=== PATIENT | male | born 1980 | race American Indian/Alaskan Native ===

== ENCOUNTER 2021-02-17 19:41 | Inpatient (IN) | payer SELFPAY ==
[2021-02-17] MEDS ORDERED: CLOPIDOGREL 300 MG TAB PO ONE (19:43)
[2021-02-17] MEDS ORDERED: ONDANSETRON 4 MG/2 ML INJ IV ONE (19:43)
[2021-02-17] MEDS ORDERED: HEPARIN 10,000 UNITS/10 ML VIAL IV PRN (19:43)
[2021-02-17] MEDS ORDERED: HEPARIN 1,000 UNIT/1 ML VIAL IV ONE (19:43)
[2021-02-17] MEDS ORDERED: MORPHINE 4 MG/1 ML INJ IV ONE (19:46)
[2021-02-17] MEDS ORDERED: SODIUM CHLORIDE 0.9% 500 ML 500 ML IV ONE (19:46)
--- NOTE | 2021-02-17 19:47 | Emergency Department Report ---
ED Chest Pain HPI - General Chief Complaint: Chest Pain Stated Complaint: CODE STEMI PUI?: No Time Seen by Provider: 02/17/21 19:43 Source: patient, EMS (Verbal report received from emergency medical services. EMS documentation not available at time of chart dictation ), RN notes reviewed Mode of arrival: Stretcher Limitations: Physical Limitation - History of Present Illness Initial Comments: The patient was evaluated in the emergency department for symptoms described in the history of present illness. He/she was evaluated in the context of the global COVID-19 pandemic, which necessitated consideration that the patient might be at risk for infection with the virus that causes COVID-19. Institutional protocols and algorithms that pertain to the evaluation of patients at risk for COVID-19 are in a state of rapid change based on information released by regulatory bodies including the CDC and federal and state organizations. These policies and algorithms were followed during the patient's care in the emergency department. Please note that these policies, procedures and recommendations changed on a rapid basis. The patient is a 40-year-old gentleman, who has a history of diabetes, who is brought to the hospital by emergency medical services as a code STEMI. Patient complains of anterior and left-sided chest pain. Prehospital EKG consistent with inferior wall STEMI. EMS gave Zofran, Benadryl, and aspirin in the field. They reported a normal blood pressure. EKG evaluated by myself, and subsequently transmitted to our power shovel operator helper, Dr. Slater, at 19: 32 PM. We agreed to activate the catheterization lab emergently. \ Code STEMI called overhead at 19: 33 Cardiology request Plavix load, 600 mg, heparin. The patient denies travel, surgery, immobilization, DVT and pulmonary embolism risk factors, and hematemesis and bright red blood per rectum. MD Complaint: chest pain -: Sudden, hour(s) Pain Location: substernal, left chest Consistency: constant Improves With: nothing Worsens With: nothing re: nausea Treatments Prior to Arrival: aspirin, other Aspirin use within the Past 7 Days: (0) No - Related Data Allergies Allergy/AdvReac Type Severity Reaction Status Date / Time No Known Allergies Allergy Verified 02/17/21 19:46 Heart Score - HEART Score History: Highly suspicious EKG: Significant ST-depression Age: < 45 Risk factors: 1-2 risk factors Troponin: 1-3x normal limit HEART Score: 6 - EKG Read Time Time EKG Completed: 19:46 EKG Read Time: 19:46 - Critical Actions Critical Actions: 4-6 pts:12-16.6% risk of adverse cardiac event. Should be admitted ED Review of Systems ROS: Stated complaint: CODE STEMI Other details as noted in HPI Comment: Unobtainable due to pts medical conditions Cardiovascular: chest pain Gastrointestinal: denies: hematemesis, melena, hematochezia ED Physical Exam - General Limitations: Physical Limitation General appearance: alert, anxious, in distress - Head Head exam: Present: atraumatic, normocephalic - Eye Eye exam: Present: normal appearance, EOMI. Absent: nystagmus - ENT ENT exam: Present: normal exam, normal orophraynx, mucous membranes moist, normal external ear exam - Neck Neck exam: Present: normal inspection, full ROM. Absent: tenderness, meningismus - Respiratory Respiratory exam: Present: normal lung sounds bilaterally. Absent: respiratory distress, wheezes, rales, rhonchi, stridor, decreased breath sounds - Cardiovascular Cardiovascular Exam: Present: regular rate, normal rhythm, normal heart sounds. Absent: bradycardia, tachycardia, irregular rhythm, systolic murmur, diastolic murmur, rubs, gallop - GI/Abdominal GI/Abdominal exam: Present: soft. Absent: distended, tenderness, guarding, rebound, rigid, pulsatile mass - Rectal Rectal exam: Present: deferred - Extremities Exam Extremities exam: Present: normal inspection, full ROM, other (2+ pulses noted in the bilateral upper and lower extremities. There is no palpable cord. negative Homans sign. Muscular compartments are soft. The pelvis is stable.). Absent: pedal edema, calf tenderness - Back Exam Back exam: Present: normal inspection. Absent: tenderness, CVA tenderness (R), CVA tenderness (L), paraspinal tenderness, vertebral tenderness - Neurological Exam Neurological exam: Present: alert, other (No facial droop. Tongue midline. Extraocular movements intact bilaterally. Facial sensation intact to light touch in V1, V2, V3 distribution bilaterally. 5 and a 5 strength in 4 extremities. Sensation intact to light touch in 4 extremities.) - Psychiatric Psychiatric exam: Present: anxious - Skin Skin exam: Present: warm, dry, intact, normal color. Absent: rash ED Course Vital Signs 02/17/21 02/17/21 02/17/21 19:41 19:45 21:45 Temperature 98 F Pulse Rate 98 H 84 Respiratory 16 12 Rate Blood Pressure 112/77 Blood Pressure 129/99 [Left] O2 Sat by Pulse 98 98 100 Oximetry 02/17/21 02/17/21 02/17/21 22:12 22:17 22:20 Temperature 98.1 F Pulse Rate 84 70 Respiratory 13 15 Rate Blood Pressure 112/71 Blood Pressure [Left] O2 Sat by Pulse Oximetry 02/17/21 02/17/21 02/17/21 22:30 22:40 22:50 Temperature Pulse Rate 72 69 75 Respiratory 18 8 L 8 L Rate Blood Pressure 112/71 112/62 Blood Pressure [Left] O2 Sat by Pulse 97 98 98 Oximetry JIM score - Jim Score Age > 65: (0) No Aspirin use within the Past 7 Days: (0) No 3 or more CAD Risk Factors: (0) No 2 or more Angina events in past 24 hrs: (0) No Known CAD with more than 50% Stenosis: (1) Yes Elevated Cardiac Markers: (1) Yes ST Deviation Greater than 0.5mm: (1) Yes JIM Score: 3 ED Medical Decision Making - Lab Data Result diagrams: 02/17/21 20:37 02/17/21 21:02 Vital Signs 02/17/21 02/17/21 02/17/21 19:41 19:45 21:45 Temperature 98 F Pulse Rate 98 H 84 Respiratory 16 12 Rate Blood Pressure 112/77 Blood Pressure 129/99 [Left] O2 Sat by Pulse 98 98 100 Oximetry 02/17/21 02/17/21 02/17/21 22:12 22:17 22:20 Temperature 98.1 F Pulse Rate 84 70 Respiratory 13 15 Rate Blood Pressure 112/71 Blood Pressure [Left] O2 Sat by Pulse Oximetry 02/17/21 02/17/21 02/17/21 22:30 22:40 22:50 Temperature Pulse Rate 72 69 75 Respiratory 18 8 L 8 L Rate Blood Pressure 112/71 112/62 Blood Pressure [Left] O2 Sat by Pulse 97 98 98 Oximetry Lab Results 02/17/21 02/17/21 02/17/21 Range/Units 20:37 20:37 21:02 WBC 8.2 (4.5-11.0) K/mm3 RBC 4.57 (3.65-5.03) M/mm3 Hgb 12.5 (11.8-15.2) gm/dl Hct 37.5 (35.5-45.6) % MCV 82 L (84-94) fl MCH 27 L (28-32) pg MCHC 33 (32-34) % RDW 12.6 L (13.2-15.2) % Plt Count 240 (140-440) K/mm3 Lymph % (Auto) 13.0 L (13.4-35.0) % Foster % (Auto) 3.2 (0.0-7.3) % Eos % (Auto) 0.0 (0.0-4.3) % Baso % (Auto) 0.4 (0.0-1.8) % Lymph # (Auto) 1.1 L (1.2-5.4) K/mm3 Foster # (Auto) 0.3 (0.0-0.8) K/mm3 Eos # (Auto) 0.0 (0.0-0.4) K/mm3 Baso # (Auto) 0.0 (0.0-0.1) K/mm3 Seg Neutrophils % 83.4 H (40.0-70.0) % Seg Neutrophils # 6.9 (1.8-7.7) K/mm3 PT TNR INR TNR APTT TNR Sodium 135 L (137-145) mmol/L Potassium 4.3 (3.6-5.0) mmol/L Chloride 97.4 L (98-107) mmol/L Carbon Dioxide 27 (22-30) mmol/L Anion Gap 15 mmol/L BUN 9 (9-20) mg/dL Creatinine 0.7 L (0.8-1.3) mg/dL Estimated GFR > 60 ml/min BUN/Creatinine Ratio 13 % Glucose 346 H (75-100) mg/dL Calcium 9.1 (8.4-10.2) mg/dL Total Creatine Kinase 502 H (55-170) units/L CK-MB (CK-2) 41.8 H (0.0-4.0) ng/mL CK-MB (CK-2) Rel Index 8.3 H (0-4) Troponin T 0.890 H* (0.00-0.029) ng/mL Triglycerides 44 (2-149) mg/dL Cholesterol 186 (50-199) mg/dL LDL Cholesterol Direct 143 H (50-130) mg/dL HDL Cholesterol 47 (40-59) mg/dL Cholesterol/HDL Ratio 3.95 % Blood Type Antibody Screen 02/17/21 02/17/21 Range/Units 21:02 21:02 WBC (4.5-11.0) K/mm3 RBC (3.65-5.03) M/mm3 Hgb (11.8-15.2) gm/dl Hct (35.5-45.6) % MCV (84-94) fl MCH (28-32) pg MCHC (32-34) % RDW (13.2-15.2) % Plt Count (140-440) K/mm3 Lymph % (Auto) (13.4-35.0) % Foster % (Auto) (0.0-7.3) % Eos % (Auto) (0.0-4.3) % Baso % (Auto) (0.0-1.8) % Lymph # (Auto) (1.2-5.4) K/mm3 Foster # (Auto) (0.0-0.8) K/mm3 Eos # (Auto) (0.0-0.4) K/mm3 Baso # (Auto) (0.0-0.1) K/mm3 Seg Neutrophils % (40.0-70.0) % Seg Neutrophils # (1.8-7.7) K/mm3 PT 15.5 H INR 1.18 H APTT Sodium (137-145) mmol/L Potassium (3.6-5.0) mmol/L Chloride (98-107) mmol/L Carbon Dioxide (22-30) mmol/L Anion Gap mmol/L BUN (9-20) mg/dL Creatinine (0.8-1.3) mg/dL Estimated GFR ml/min BUN/Creatinine Ratio % Glucose (75-100) mg/dL Calcium (8.4-10.2) mg/dL Total Creatine Kinase (55-170) units/L CK-MB (CK-2) (0.0-4.0) ng/mL CK-MB (CK-2) Rel Index (0-4) Troponin T (0.00-0.029) ng/mL Triglycerides (2-149) mg/dL Cholesterol (50-199) mg/dL LDL Cholesterol Direct (50-130) mg/dL HDL Cholesterol (40-59) mg/dL Cholesterol/HDL Ratio % Blood Type O POSITIVE Antibody Screen Negative - EKG Data -: EKG Interpreted by Tx EKG shows normal: sinus rhythm - EKG Data When compared to previous EKG there are: previous EKG unavailable 02/17/21 20:03 ER EKG interpreted at 19: 46 Sinus rhythm, tachycardia, rate 101 bpm. Normal axis, QTC 444 ms. Inferior wall STEMI, high left ventricular voltage. Abnormal EKG. Consistent with prior prehospital EKG, also consistent with STEMI. - Radiology Data Radiology results: pending, report reviewed, image reviewed [facility] [address] [place] [address] XRay Report Signed Patient: ANA BARRIGA MR#: [id number] : 1980 Acct:[id number] Age/Sex: 40 / M ADM Date: 02/17/21 Loc: CC1 A257-[address]: NIMA PINEDA MD Ordering Physician: LAYLA SUNG MD Date of Service: 02/17/21 Procedure(s): XR chest 1V ap Accession Number(s): [id number] cc: LAYLA SUNG MD Fluoro Time In Minutes: CHEST 1 VIEW 02/17/2021 9:48 PM INDICATION / CLINICAL INFORMATION: chest pain. COMPARISON: None available. FINDINGS: SUPPORT DEVICES: None. HEART / MEDIASTINUM: No significant abnormality. LUNGS / PLEURA: No significant pulmonary or pleural abnormality. No pneumothorax. ADDITIONAL FINDINGS: No significant additional findings. IMPRESSION: 1. No acute findings. Signer Name: Jamie Velasco MD Signed: 02/17/2021 10:54 PM Workstation Name: [id number] Transcribed By: DT Dictated By: Rafael Velasco MD Electronically Authenticated By: Rafael Velasco MD Signed Date/Time: 02/17/212253 DD/ 52 - Medical Decision Making Differential diagnosis, including the not limited to: Acute coronary syndrome/STEMI Assessment and plan: 40-year-old gentleman with prehospital inferior wall STEMI. Prehospital EKG consistent with STEMI. Code STEMI activated overhead prior to patient's arrival to this emergency room. Have ordered laboratory studies and x-ray of the chest, however, secondary to the time sensitive nature of code STEMI, will defer to inpatient team to follow this up. Cardiology on board, patient medicated with aspirin in the field, and also to receive Plavix in the emergency room, and heparin. Critical care physician, Dr. Mir, to coordinate care in the intensive care unit. Patient will be admitted to the medical service under the care of Dr. Peter Pineda after treatment in the cardiac catheterization lab. We did discuss this with the patient. He articulated understanding. Critical Care Time: Yes Critical care time in (mins) excluding proc time.: 35 Critical care attestation.: If time is entered above; I have spent that time in minutes in the direct care of this critically ill patient, excluding procedure time. ED Disposition Clinical Impression: STEMI (ST elevation myocardial infarction) Disposition: OP ADMIT IP TO THIS HOSP Is pt being admited?: Yes Does the pt Need Aspirin: No Condition: Critical
[2021-02-17] MEDS ORDERED: HEPARIN/NS 5000 UNIT/500ML 1,000 ML IR ONE (19:48)
[2021-02-17] MEDS ORDERED: VERAPAMIL 5 MG/2 ML INJ ONE (19:49)
[2021-02-17] MEDS ORDERED: LIDOCAINE (2%) 20 MG/1 ML VIAL 20 ML MDV INFILTRATI ONE ×2 (19:49→20:25)
[2021-02-17] MEDS ORDERED: NITROGLYCERIN SYRINGE 3 ML ONE (19:49)
[2021-02-17] MEDS ORDERED: HEPARIN 10,000 UNITS/10 ML VIAL ONE ×2 (19:49→22:19)
[2021-02-17] MEDS ORDERED: MIDAZOLAM 2 MG/2 ML INJ ONE (19:49)
[2021-02-17] MEDS ORDERED: fentaNYL 100 MCG/2 ML INJ ONE (19:49)
[2021-02-17] MEDS ORDERED: ATROPINE 0.1% (1 MG/10 ML) CARDIAC SYRINGE ONE (19:50)
[2021-02-17] MEDS ORDERED: LIDOCAINE PF 100 MG/5 ML (CARDIAC SYRINGE) IV ONE (19:50)
[2021-02-17] MEDS ORDERED: SODIUM CHLORIDE 0.9% 1000 ML 1,000 ML ONE (19:50)
[2021-02-17] MEDS ORDERED: EPINEPHrine 1 MG/10 ML SYRINGE ONE (19:50)
[2021-02-17] MEDS ORDERED: PHENYLEPHRINE/NS 1,000 MCG/10 ML SYRINGE (OR USE) IV ONE (19:51)
[2021-02-17] MEDS ORDERED: HEPARIN/ 0.45% NACL DRIP 25,000 UNIT/500 ML BAG IV SCH (20:00)
[2021-02-17] MEDS ORDERED: TIROFIBAN/NS 12,500 MCG/250 ML BAG IV ONE (20:20)
[2021-02-17] MEDS ORDERED: DOPamine/D5W 800 MG/250 ML 800 MG/250 ML BAG IV ONE (20:23)
[2021-02-17] MEDS ORDERED: HEPARIN/NS 5000 UNIT/500ML 500 ML IR ONE (20:28)
[2021-02-17] MEDS ORDERED: METOCLOPRAMIDE 10 MG/2 ML INJ IV PRN (20:34)
[2021-02-17] MEDS ORDERED: ONDANSETRON 4 MG/2 ML INJ IV PRN ×5 (20:34→21:33)
[2021-02-17] MEDS ORDERED: HYDROmorphone 1 MG/1 ML INJ IV PRN ×2 (20:34→21:42)
[2021-02-17] MEDS ORDERED: MORPHINE 2 MG/1 ML INJ IV PRN (20:34)
[2021-02-17] MEDS ORDERED: ACETAMINOPHEN 325 MG TAB PO PRN ×3 (20:41→21:33)
[2021-02-17] MEDS ORDERED: SODIUM CHLORIDE 0.9% 1000 ML 1,000 ML IV SCH (20:45)
[2021-02-17 20:46] LABS: Basophils % (Auto) 0.4 % (0.0-1.8); Hematocrit 37.5 % (35.5-45.6); Hemoglobin 12.5 gm/dl (11.8-15.2); Lymphocytes # (Auto) 1.1 K/mm3 (1.2-5.4); Mean Corpuscular HGB Conc 33 % (32-34); Mean Corpuscular Volume 82 fl (84-94); Monocytes # (Auto) 0.3 K/mm3 (0.0-0.8); Monocytes % (Auto) 3.2 % (0.0-7.3); Platelet Count 240 K/mm3 (140-440); Red Blood Count 4.57 M/mm3 (3.65-5.03); Red Cell Distribution Width 12.6 % (13.2-15.2)
[2021-02-17] MEDS ORDERED: HEPARIN 10,000 UNITS/10 ML VIAL IV ONE (21:00)
[2021-02-17] MEDS ORDERED: NALOXONE 0.4 MG/1 ML INJ IV PRN (21:19)
[2021-02-17] MEDS ORDERED: IBUPROFEN 600 MG TAB PO PRN ×2 (21:19→21:42)
[2021-02-17 21:23] LABS: INR 1.18 (0.87-1.13)
[2021-02-17] MEDS ORDERED: DEXTROSE 50% IN WATER (25GM) 50 ML SYRINGE IV ONE (21:28)
[2021-02-17] MEDS ORDERED: DOPamine/D5W 800 MG/250 ML DRIP IV ONE (21:30)
[2021-02-17] MEDS ORDERED: oxyCODONE /ACETAMINOPHEN 5-325MG TAB PO PRN (21:36)
[2021-02-17 21:38] LABS: INR TNR (0.87-1.13); Partial Thromboplastin Time TNR Sec. (24.2-36.6)
[2021-02-17 21:42] LABS: Creatine Kinase MB 41.8 ng/mL (0.0-4.0)
[2021-02-17 21:43] LABS: Blood Urea Nitrogen 9 mg/dL (9-20); Calcium 9.1 mg/dL (8.4-10.2); Hemolysis Index 6
[2021-02-17 21:48] LABS: BUN/Creatinine Ratio 13
[2021-02-17 21:59] LABS: Chol/HDL Ratio 3.95 %; HDL Cholesterol 47 mg/dL (40-59); LDL Cholesterol,Direct 143 mg/dL (50-130)
[2021-02-17] MEDS ORDERED: FAMOTIDINE 20 MG/2 ML INJ IV SCH (22:00)
[2021-02-17] MEDS ORDERED: HEPARIN/ 0.45% NACL - 25,000 UNITS/500 ML DRIP ONE (22:19)
--- NOTE | 2021-02-17 22:46 | Cardiac Catherization Report ---
DATE OF PROCEDURE: 02/17/2021 CARDIAC CATHETERIZATION INDICATION FOR PROCEDURE: The patient is a 40-year-old -[place] gentleman with history of tobacco use as well as diabetes, presents with two hours of chest pain, found to have inferior ST elevation myocardial infarction. STEMI protocol was initiated. The patient loaded with aspirin, heparin and Plavix in the Emergency Room, brought to the union laborer in urgent fashion. PROCEDURE IN DETAIL: The patient was brought to union laborer in urgent fashion, prepped and draped in sterile fashion. A 2 mL of 2% lidocaine used to anesthetize the right wrist. A standard 6-American hydrophilic sheath used to cannulate the right radial artery via modified Seldinger technique. All exchanges performed to exchange a J-tip guidewire. A JL3.5 catheter was used to engage the left main. No dampening or ventricularization. Cineangiography performed in multiple projections. We then changed to JR4 guide, used to cross the aortic valve under fluoroscopic guidance. Left ____ ventriculography performed in 30 ALY projection via hand injections. Catheter flushed. Manual pullback performed with continuous pressure monitoring. Catheter used to engage the right coronary. No dampening or ventricularization. DATA: Aortic pressure is 120/70. The patient remained in sinus rhythm and PVCs. The patient with 10/10 chest pain at the beginning of the case. We confirmed an abnormal ACT. ANGIOGRAPHY FINDINGS: Right coronary artery shows flush occlusion of mid right coronary with a 90% proximal right coronary occlusion. This was obviously the culprit lesion. Left main without significant disease, bifurcates into left anterior descending and left circumflex. LAD is a moderate-sized vessel, courses anterior intraventricular groove, wraps around the apex, scattered luminal irregularities, but no significant disease. Left circumflex, moderate-sized vessel, courses AV groove. No significant disease. Right dominant system. At this point, we turned our attention to PCI. A Toivola wire was used to cross the lesion without difficulty. We predilated the lesion with 2.0 x 12 balloon with some resolution of flow, but then we had acute closure flow due to thrombus burden. A single bolus of Aggrastat was given. An [place] thrombectomy catheter was used and multiple passes were made. Improved blood flow. The patient developed some bradycardia. Here, a 7-American sheath was placed in the right femoral vein, a balloon tipped temporary pacemaker is placed in the right ventricular apex under fluoroscopic guidance for backup. The patient started on low dose dopamine due to mild hypotension. Fluids are wide open throughout the case given concern about RV involvement. At this point, we used a 3.0 x 15 Resolute drug-eluting stent to cover the culprit lesion, deployed at 12 CINDI for 30 seconds. Excellent result. Next, we used a 3.0 x 18 Resolute stent proximally at 12 CINDI for 30 seconds. Excellent angiographic result. Intravascular ultrasound was performed and multiple passes were made, which reveals a well-opposed and well-expanded stents. Final angiogram reveals SUNDAR 3 flow, no dissection or distal cut off. The patient is chest pain free. ST elevations resolved. We will wean off dopamine. The patient was watched on the table for some 30 minutes after the case. Did not require temporary pacemaker. We removed this as well. Radial sheath was removed. The patient is clinically stable and chest pain free. Continue aggressive IV fluid hydration. Continue Plavix, aspirin. Labs are still pending are they are partially hemolyzed in the lab. Further labs were sent. We will follow up on this. Discussed with hospitalist. I directly supervised the administration of moderate sedation with fentanyl and versed from 8p to 910p. No immediate complications. CONCLUSIONS: Acute atherothrombotic occlusion of the mid right coronary and 90% proximal right coronary in the milieu of an acute inferior ST elevation myocardial infarction complicated by bradycardia and hypotension, likely secondary to RV involvement. IMPRESSION: 1. Successful thrombectomy-assisted and IVUS-guided percutaneous coronary intervention with placement of 2 drug-eluting stents, 3.0 x 15 in the mid segment and 3.0 x 18 in the proximal segment with excellent final angiographic and ultrasonographic results. Successful thrombectomy of the mid right coronary. 2. Preserved left ventricular systolic performance, estimated ejection fraction of 55-60%. 3. Normal left ventricular end-diastolic pressure. 4. Successful placement of a right femoral 7-American sheath. 5. Successful fluoroscopic-guided placement of a temporary venous pacemaker in the right ventricular apex. 6. No evidence of aortic stenosis. At the completion of the case, the patient is clinically stable. No symptoms. His sheaths were removed. He will be transferred to ICU. No family is available at this time. We will check an echocardiogram in the morning. The results of procedure explained to the patient at length. All questions were addressed. Standard groin and radial care. TID: [id number] RECEIPT: [id number] GERARDO/JESSICA BINGHAM
--- NOTE | 2021-02-17 22:59 | XRay Report ---
CHEST 1 VIEW 02/17/2021 9:48 PM INDICATION / CLINICAL INFORMATION: chest pain. COMPARISON: None available. FINDINGS: SUPPORT DEVICES: None. HEART / MEDIASTINUM: No significant abnormality. LUNGS / PLEURA: No significant pulmonary or pleural abnormality. No pneumothorax. ADDITIONAL FINDINGS: No significant additional findings. IMPRESSION: 1. No acute findings. Signer Name: Jamie Velasco MD Signed: 02/17/2021 10:54 PM Workstation Name: [id number]
[2021-02-18 00:20] LABS: Creatine Kinase MB 219.8 ng/mL (0.0-4.0)
[2021-02-18 06:19] LABS: Creatine Kinase MB 235.3 ng/mL (0.0-4.0)
[2021-02-18 06:21] LABS: Alanine Aminotransferase 31 units/L (7-56); Albumin 3.5 g/dL (3.9-5); Blood Urea Nitrogen 10 mg/dL (9-20); Calcium 8.6 mg/dL (8.4-10.2); Hemolysis Index 3
[2021-02-18 06:24] LABS: BUN/Creatinine Ratio 17
--- NOTE | 2021-02-18 07:05 | History and Physical Report ---
History of Present Illness Date of examination: 02/17/21 Date of admission: 02/17/21 22:09 Chief complaint: Severe substernal chest pain for 1 hour History of present illness: 40-year-old male with no significant past medical history except diabetes was brought to hospital via EMS as code STEMI. Patient was complaining of anterior and left-sided chest pain which is sharp associated with diaphoresis. No radiation. Mostly substernal and left side of the chest. No shortness of breath. EMS reported normal blood pressure. EMS administered aspirin in the field. EKG had changes consistent with STEMI. In the inferior leads. Code STEMI was activated and patient was taken to the Equipment Processor for PCI Heart Score - HEART Score History: Highly suspicious EKG: Significant ST-depression Age: < 45 Risk factors: 1-2 risk factors Troponin: 1-3x normal limit HEART Score: 6 - EKG Read Time Time EKG Completed: 19:46 EKG Read Time: 19:46 - Critical Actions Critical Actions: 4-6 pts:12-16.6% risk of adverse cardiac event. Should be admitted Review of Systems ROS: Chest and lungs severe substernal chest pain and left precordial pain associated with diaphoresis Constitutional no weight loss or weight gain no fever or chills HEENT no sore throat no post nasal drip no diplopia Neck no neck stiffness no lymph gland enlargement CVS no chest pain no diaphoresis no palpitations GI no nausea no vomiting no diarrhea Genitourinary system no dysuria no flank pain Musculoskeletal system no muscle pains no joint pains CLINICAL ESTHETICIAN no syncope no seizures Skin no rash no itching Psychiatric no depression no homicidal or suicidal tendencies Hematologic no lymphedema or bruising Endocrine no polydipsia no polyuria no cold intolerance no heat intolerance Medications and Allergies Allergies Allergy/AdvReac Type Severity Reaction Status Date / Time No Known Allergies Allergy Verified 02/17/21 19:46 Home Medications Medication Instructions Recorded Confirmed Last Taken Type No Known Home Medications [No 02/18/21 02/18/21 Unknown History Reported Home Medications] Active Meds: Active Medications Aspirin (Aspirin Ec 325 Mg Tab) 325 mg PO QDAY VLADISLAV Heparin Sodium (Porcine) (Heparin 10,000 Units/10 Ml Vial) 0 unit IV Q6H PRN; Protocol PRN Reason: Anti-Xa Assay less than 0.1 un Hydromorphone HCl (Hydromorphone 1 Mg/1 Ml Inj) 0.5 mg IV Q3H PRN PRN Reason: Pain , Severe (7-10) Sodium Chloride (Nacl 0.9% 1000 Ml) 1,000 mls @ 75 mls/hr IV DIRECT VLADISLAV Last Admin: 02/18/21 01:41 Dose: 75 mls/hr Documented by: Ibuprofen (Ibuprofen 600 Mg Tab) 600 mg PO Q6H PRN PRN Reason: Pain, Mild (1-3) Metoclopramide HCl (Metoclopramide 10 Mg/2 Ml Inj) 10 mg IV Q6H PRN PRN Reason: Nausea And Vomiting Morphine Sulfate (Morphine 2 Mg/1 Ml Inj) 2 mg IV Q4H PRN PRN Reason: Pain, Moderate (4-6) Naloxone HCl (Naloxone 0.4 Mg/1 Ml Inj) 0.1 mg IV Q2MIN PRN PRN Reason: Res Rate </= 8 or 02 SAT < 92% Ondansetron HCl (Ondansetron 4 Mg/2 Ml Inj) 4 mg IV Q3H PRN PRN Reason: Nausea And Vomiting Exam - Constitutional Vitals: Temp Pulse Resp BP Pulse Ox 98.7 F 54 L 24 128/84 99 02/18/21 04:00 02/18/21 06:10 02/18/21 06:10 02/18/21 06:10 02/18/21 06:10 General appearance: Present: no acute distress, well-nourished - EENT Eyes: Present: PERRL ENT: hearing intact, clear oral mucosa - Neck Neck: Present: supple, normal ROM - Respiratory Respiratory effort: normal Respiratory: bilateral: CTA - Cardiovascular Heart rate: 78 Rhythm: regular Heart Sounds: Present: S1 & S2. Absent: rub, click - Extremities Extremities: no ischemia, pulses intact, pulses symmetrical, No edema Peripheral Pulses: within normal limits - Abdominal General gastrointestinal: Present: soft, non-tender, non-distended, normal bowel sounds Male genitourinary: Present: normal - Rectal Rectal Exam: deferred - Integumentary Integumentary: Present: clear, warm, dry - Musculoskeletal Musculoskeletal: gait normal, strength equal bilaterally - Psychiatric Psychiatric: appropriate mood/affect, intact judgment & insight - Neurologic Neurologic: CNII-XII intact, moves all extremities - Allied Health Allied health notes reviewed: nursing, social work HEART Score - HEART Score EKG: Significant ST-depression Age: < 45 Risk factors: 1-2 risk factors Troponin: Troponin T 3.310 ng/mL (0.00-0.029) H* D 02/18/21 04:37 Troponin: 1-3x normal limit - Critical Actions Critical Actions: 4-6 pts:12-16.6% risk of adverse cardiac event. Should be admitted Results - Labs CBC & Chem 7: 02/17/21 20:37 02/18/21 04:37 Labs: Laboratory Last Values WBC 8.2 K/mm3 (4.5-11.0) 02/17/21 20:37 RBC 4.57 M/mm3 (3.65-5.03) 02/17/21 20:37 Hgb 12.5 gm/dl (11.8-15.2) 02/17/21 20:37 Hct 37.5 % (35.5-45.6) 02/17/21 20:37 MCV 82 fl (84-94) L 02/17/21 20:37 MCH 27 pg (28-32) L 02/17/21 20:37 MCHC 33 % (32-34) 02/17/21 20:37 RDW 12.6 % (13.2-15.2) L 02/17/21 20:37 Plt Count 240 K/mm3 (140-440) 02/17/21 20:37 Lymph % (Auto) 13.0 % (13.4-35.0) L 02/17/21 20:37 [place] % (Auto) 3.2 % (0.0-7.3) 02/17/21 20:37 Eos % (Auto) 0.0 % (0.0-4.3) 02/17/21 20:37 Baso % (Auto) 0.4 % (0.0-1.8) 02/17/21 20:37 Lymph # (Auto) 1.1 K/mm3 (1.2-5.4) L 02/17/21 20:37 [place] # (Auto) 0.3 K/mm3 (0.0-0.8) 02/17/21 20:37 Eos # (Auto) 0.0 K/mm3 (0.0-0.4) 02/17/21 20:37 Baso # (Auto) 0.0 K/mm3 (0.0-0.1) 02/17/21 20:37 Seg Neutrophils % 83.4 % (40.0-70.0) H 02/17/21 20:37 Seg Neutrophils # 6.9 K/mm3 (1.8-7.7) 02/17/21 20:37 PT 15.5 Sec. (12.2-14.9) H 02/17/21 21:02 INR 1.18 (0.87-1.13) H 02/17/21 21:02 APTT TNR 02/17/21 20:37 Sodium 138 mmol/L (137-145) 02/18/21 04:37 Potassium 3.8 mmol/L (3.6-5.0) 02/18/21 04:37 Chloride 99.6 mmol/L (98-107) 02/18/21 04:37 Carbon Dioxide 26 mmol/L (22-30) 02/18/21 04:37 Anion Gap 16 mmol/L 02/18/21 04:37 BUN 10 mg/dL (9-20) 02/18/21 04:37 Creatinine 0.6 mg/dL (0.8-1.3) L 02/18/21 04:37 Estimated GFR > 60 ml/min 02/18/21 04:37 BUN/Creatinine Ratio 17 % 02/18/21 04:37 Glucose 245 mg/dL (75-100) H 02/18/21 04:37 POC Glucose 304 mg/dL (70-105) H 02/17/21 22:58 Calcium 8.6 mg/dL (8.4-10.2) 02/18/21 04:37 Total Bilirubin 0.60 mg/dL (0.1-1.2) 02/18/21 04:37 AST 149 units/L (5-40) H 02/18/21 04:37 ALT 31 units/L (7-56) 02/18/21 04:37 Alkaline Phosphatase 86 units/L (35-129) 02/18/21 04:37 Total Creatine Kinase 2175 units/L (55-170) H 02/18/21 04:37 CK-MB (CK-2) 235.3 ng/mL (0.0-4.0) H 02/18/21 04:37 CK-MB (CK-2) Rel Index 10.8 (0-4) H 02/18/21 04:37 Troponin T 3.310 ng/mL (0.00-0.029) H* D 02/18/21 04:37 Total Protein 6.5 g/dL (6.3-8.2) 02/18/21 04:37 Albumin 3.5 g/dL (3.9-5) L 02/18/21 04:37 Albumin/Globulin Ratio 1.2 % 02/18/21 04:37 Triglycerides 44 mg/dL (2-149) 02/17/21 21:02 Cholesterol 186 mg/dL (50-199) 02/17/21 21:02 LDL Cholesterol Direct 143 mg/dL (50-130) H 02/17/21 21:02 HDL Cholesterol 47 mg/dL (40-59) 02/17/21 21:02 Cholesterol/HDL Ratio 3.95 % 02/17/21 21:02 Blood Type O POSITIVE 02/17/21 21:02 Antibody Screen Negative 02/17/21 21:02 Short CBC 02/17/21 Range/Units 20:37 WBC 8.2 (4.5-11.0) K/mm3 Hgb 12.5 (11.8-15.2) gm/dl Hct 37.5 (35.5-45.6) % Plt Count 240 (140-440) K/mm3 BMP 02/17/21 02/18/21 21:02 04:37 Sodium 135 L 138 Potassium 4.3 3.8 Chloride 97.4 L 99.6 Carbon Dioxide 27 26 BUN 9 10 Creatinine 0.7 L 0.6 L Glucose 346 H 245 H Calcium 9.1 8.6 Cardiac Enzymes 02/17/21 02/17/21 02/18/21 Range/Units 21:02 23:13 04:37 Total Creatine Kinase 502 H 1791 H 2175 H (55-170) units/L CK-MB (CK-2) 41.8 H 219.8 H 235.3 H (0.0-4.0) ng/mL Troponin T 0.890 H* 5.080 H* D (0.00-0.029) ng/mL 02/18/21 Range/Units 04:37 Total Creatine Kinase (55-170) units/L CK-MB (CK-2) (0.0-4.0) ng/mL Troponin T 3.310 H* D (0.00-0.029) ng/mL Liver Function 02/18/21 Range/Units 04:37 Total Bilirubin 0.60 (0.1-1.2) mg/dL AST 149 H (5-40) units/L ALT 31 (7-56) units/L Alkaline Phosphatase 86 (35-129) units/L Albumin 3.5 L (3.9-5) g/dL Assessment and Plan Assessment and plan: Critical care statement The high probability OF a clinically significant sudden or life-threatening deterioration of the cardiorespiratory system and endocrine system required my full and direct attention, intervention and postoperative management. The aggregate critical care time was 32 minutes. The time is in addition to time spent performing reported procedures but includes the followin: Data review and interpretation 2: Patient assessment and monitoring of vital signs 3: Documentation 4:: Medication orders and management Advance Directives: Yes (Full code) VTE prophylaxis?: Chemical Plan of care discussed with patient/family: Yes - Patient Problems (1) STEMI (ST elevation myocardial infarction) Current Visit: Yes Status: Acute Qualifiers: Involved coronary artery: right coronary artery Qualified Code(s): I21.11 - ST elevation (STEMI) myocardial infarction involving right coronary artery Plan to address problem: Patient was taken as code STEMI to Equipment Processor Patient had 2 stents in the RCA Patient was initiated on heparin for short greater time Slightly hypotensive On dopamine for few hours Troponin and CK-MB significantly elevated consistent with acute NV (2) Insulin dependent diabetes mellitus Current Visit: Yes Status: Chronic Plan to address problem: Check hemoglobin A1c Insulin coverage for now and adjust dosage (3) Hyperlipidemia Current Visit: Yes Status: Chronic Qualifiers: Hyperlipidemia type: mixed hyperlipidemia Qualified Code(s): E78.2 - Mixed hyperlipidemia Plan to address problem: On high-dose statins (4) DVT prophylaxis Current Visit: Yes Status: Acute Plan to address problem: On heparin and GI prophylaxis
[2021-02-18] MEDS: CLOPIDOGREL 75 MG TAB PO SCH (11:23)
--- NOTE | 2021-02-18 11:23 | Consultation ---
History of Present Illness Consult date: 02/18/21 Requesting physician: LAYLA SUNG Reason for consult: other (STEMI) History of present illness: PCCM CONSULT NOTE (Full dictation # [id number]) Please see dictated notes for full details Medications and Allergies Allergies Allergy/AdvReac Type Severity Reaction Status Date / Time No Known Allergies Allergy Verified 02/17/21 19:46 Home Medications Medication Instructions Recorded Confirmed Last Taken Type No Known Home Medications [No 02/18/21 02/18/21 Unknown History Reported Home Medications] Active Meds: Active Medications Aspirin (Aspirin Ec 325 Mg Tab) 325 mg PO QDAY VLADISLAV Clopidogrel Bisulfate (Clopidogrel 75 Mg Tab) 75 mg PO QDAY VLADISLAV Hydromorphone HCl (Hydromorphone 1 Mg/1 Ml Inj) 0.5 mg IV Q3H PRN PRN Reason: Pain , Severe (7-10) Sodium Chloride (Nacl 0.9% 1000 Ml) 1,000 mls @ 75 mls/hr IV DIRECT VLADISLAV Last Admin: 02/18/21 01:41 Dose: 75 mls/hr Documented by: Insulin Human Regular (Insulin Regular, Human 100 Units/1 Ml) 0 units SUB-Q AC HS VLADISLAV; Protocol Metoclopramide HCl (Metoclopramide 10 Mg/2 Ml Inj) 10 mg IV Q6H PRN PRN Reason: Nausea And Vomiting Morphine Sulfate (Morphine 2 Mg/1 Ml Inj) 2 mg IV Q4H PRN PRN Reason: Pain, Moderate (4-6) Naloxone HCl (Naloxone 0.4 Mg/1 Ml Inj) 0.1 mg IV Q2MIN PRN PRN Reason: Res Rate </= 8 or 02 SAT < 92% Ondansetron HCl (Ondansetron 4 Mg/2 Ml Inj) 4 mg IV Q3H PRN PRN Reason: Nausea And Vomiting Physical Examination Vital signs: Vital Signs Pulse Ox 98 02/17/21 19:41 Results - Laboratory Findings CBC and BMP: 02/17/21 20:37 02/18/21 04:37 PT/INR, D-dimer PT 15.5 Sec. (12.2-14.9) H 02/17/21 21:02 INR 1.18 (0.87-1.13) H 02/17/21 21:02 Abnormal lab findings: Abnormal Labs 02/17/21 02/17/21 02/17/21 20:37 21:02 21:02 MCV 82 L MCH 27 L RDW 12.6 L Lymph % (Auto) 13.0 L Lymph # (Auto) 1.1 L Seg Neutrophils % 83.4 H PT 15.5 H INR 1.18 H Sodium 135 L Chloride 97.4 L Creatinine 0.7 L Glucose 346 H POC Glucose AST Total Creatine Kinase 502 H CK-MB (CK-2) 41.8 H CK-MB (CK-2) Rel Index 8.3 H Troponin T 0.890 H* Albumin LDL Cholesterol Direct 143 H 02/17/21 02/17/21 02/18/21 22:58 23:13 04:37 MCV MCH RDW Lymph % (Auto) Lymph # (Auto) Seg Neutrophils % PT INR Sodium Chloride Creatinine Glucose POC Glucose 304 H AST Total Creatine Kinase 1791 H 2175 H CK-MB (CK-2) 219.8 H 235.3 H CK-MB (CK-2) Rel Index 12.2 H 10.8 H Troponin T 5.080 H* D Albumin LDL Cholesterol Direct 02/18/21 02/18/21 04:37 11:20 MCV MCH RDW Lymph % (Auto) Lymph # (Auto) Seg Neutrophils % PT INR Sodium Chloride Creatinine 0.6 L Glucose 245 H POC Glucose 333 H AST 149 H Total Creatine Kinase CK-MB (CK-2) CK-MB (CK-2) Rel Index Troponin T 3.310 H* D Albumin 3.5 L LDL Cholesterol Direct
[2021-02-18] MEDS: ASPIRIN EC 325 MG TAB PO SCH (11:24)
[2021-02-18] MEDS: INSULIN REGULAR, HUMAN 100 UNITS/1 ML SUB-Q SCH ×4 (11:25→22:30)
[2021-02-18] MEDS: FAMOTIDINE 20 MG TAB PO SCH (13:59)
--- NOTE | 2021-02-18 15:04 | Progress Note ---
Assessment and Plan Critical care statement The high probability OF a clinically significant sudden or life-threatening deterioration of the cardiorespiratory system and endocrine system required my full and direct attention, intervention and postoperative management. The aggregate critical care time was 32 minutes. The time is in addition to time spent performing reported procedures but includes the followin: Data review and interpretation 2: Patient assessment and monitoring of vital signs 3: Documentation 4:: Medication orders and management - Patient Problems (1) STEMI (ST elevation myocardial infarction) Current Visit: Yes Status: Acute Qualifiers: Involved coronary artery: right coronary artery Qualified Code(s): I21.11 - ST elevation (STEMI) myocardial infarction involving right coronary artery Plan to address problem: Patient was taken as code STEMI to [facility] Contract Administrator Patient had 2 stents in the RCA Patient was initiated on heparin for short greater time Slightly hypotensive On dopamine for few hours Troponin and CK-MB significantly elevated consistent with acute IN (2) Insulin dependent diabetes mellitus Current Visit: Yes Status: Chronic Plan to address problem: Check hemoglobin A1c Insulin coverage for now and adjust dosage (3) Hyperlipidemia Current Visit: Yes Status: Chronic Qualifiers: Hyperlipidemia type: mixed hyperlipidemia Qualified Code(s): E78.2 - Mixed hyperlipidemia Plan to address problem: On high-dose statins (4) DVT prophylaxis Current Visit: Yes Status: Acute Plan to address problem: On heparin and GI prophylaxis Subjective Date of service: 02/18/21 Principal diagnosis: 02/18/2021 Interval history: 40-year-old male with no significant past medical history except diabetes was brought to hospital via EMS as code STEMI. Patient was complaining of anterior and left-sided chest pain which is sharp associated with diaphoresis. No radiation. Mostly substernal and left side of the chest. No shortness of breath. EMS reported normal blood pressure. EMS administered aspirin in the field. EKG had changes consistent with STEMI. In the inferior leads. Code STEMI was activated and patient was taken to the Sales Contract Administrator for PCI 02/18/2021 Patient had LHC 02/17/2021 -Successful thrombectomy and PCI with 2 HILARIO in RCA. EF 55 to 60% yesterday Patient doing well and comfortable otherwise Objective - Constitutional Vitals: Vital Signs - 12hr 02/18/21 02/18/21 02/18/21 03:10 03:20 03:30 Temperature Pulse Rate 51 L 56 L 59 L Respiratory 16 21 25 H Rate Blood Pressure 129/66 117/75 117/75 O2 Sat by Pulse 99 97 97 Oximetry 02/18/21 02/18/21 02/18/21 03:40 03:50 04:00 Temperature 98.7 F Pulse Rate 60 56 L 58 L Respiratory 23 20 24 Rate Blood Pressure 117/75 129/66 129/66 O2 Sat by Pulse 96 97 97 Oximetry 02/18/21 02/18/21 02/18/21 04:10 04:20 04:30 Temperature Pulse Rate 57 L 59 L 58 L Respiratory 25 H 22 22 Rate Blood Pressure 114/80 114/80 114/80 O2 Sat by Pulse 97 97 97 Oximetry 02/18/21 02/18/21 02/18/21 04:40 04:50 05:00 Temperature Pulse Rate 59 L 68 70 Respiratory 16 16 16 Rate Blood Pressure 114/80 114/80 125/95 O2 Sat by Pulse 99 99 100 Oximetry 02/18/21 02/18/21 02/18/21 05:10 05:20 05:30 Temperature Pulse Rate 58 L 57 L 63 Respiratory 15 16 20 Rate Blood Pressure 125/95 125/95 125/95 O2 Sat by Pulse 100 99 99 Oximetry 02/18/21 02/18/21 02/18/21 05:40 05:50 06:00 Temperature Pulse Rate 56 L 56 L 54 L Respiratory 23 21 21 Rate Blood Pressure 125/95 125/95 125/95 O2 Sat by Pulse 100 98 99 Oximetry 02/18/21 02/18/21 02/18/21 06:10 07:00 07:30 Temperature 98.6 F Pulse Rate 54 L Respiratory 24 20 Rate Blood Pressure 128/84 O2 Sat by Pulse 99 97 Oximetry 02/18/21 02/18/21 02/18/21 07:37 09:00 10:00 Temperature Pulse Rate 76 Respiratory 20 Rate Blood Pressure O2 Sat by Pulse 98 97 Oximetry 02/18/21 02/18/21 12:00 13:00 Temperature 98.3 F Pulse Rate Respiratory 20 Rate Blood Pressure O2 Sat by Pulse 97 Oximetry General appearance: Present: no acute distress, well-nourished - EENT Eyes: PERRL, EOM intact ENT: hearing intact, clear oral mucosa Ears: bilateral: normal - Neck Neck: supple, normal ROM - Respiratory Respiratory effort: normal Respiratory: bilateral: CTA - Breasts Breasts: normal - Cardiovascular Heart rate: 78 Rhythm: regular Heart Sounds: Present: S1 & S2. Absent: gallop, rub Extremities: pulses intact, No edema, normal color, Full ROM - Gastrointestinal General gastrointestinal: Present: soft, non-tender, non-distended, normal bowel sounds - Genitourinary Male genitourinary: normal - Integumentary Integumentary: clear, warm, dry - Musculoskeletal Musculoskeletal: 1, strength equal bilaterally - Neurologic Neurologic: moves all extremities - Psychiatric Psychiatric: memory intact, appropriate mood/affect, intact judgment & insight - Labs CBC & Chem 7: 02/17/21 20:37 02/18/21 04:37 Labs: Abnormal lab results 02/17/21 02/17/21 02/17/21 Range/Units 20:37 21:02 21:02 MCV 82 L (84-94) fl MCH 27 L (28-32) pg RDW 12.6 L (13.2-15.2) % Lymph % (Auto) 13.0 L (13.4-35.0) % Lymph # (Auto) 1.1 L (1.2-5.4) K/mm3 Seg Neutrophils % 83.4 H (40.0-70.0) % PT 15.5 H (12.2-14.9) Sec. INR 1.18 H (0.87-1.13) Sodium 135 L (137-145) mmol/L Chloride 97.4 L (98-107) mmol/L Creatinine 0.7 L (0.8-1.3) mg/dL Glucose 346 H (75-100) mg/dL POC Glucose (70-105) mg/dL AST (5-40) units/L Total Creatine Kinase 502 H (55-170) units/L CK-MB (CK-2) 41.8 H (0.0-4.0) ng/mL CK-MB (CK-2) Rel Index 8.3 H (0-4) Troponin T 0.890 H* (0.00-0.029) ng/mL Albumin (3.9-5) g/dL LDL Cholesterol Direct 143 H (50-130) mg/dL 02/17/21 02/17/21 02/18/21 Range/Units 22:58 23:13 04:37 MCV (84-94) fl MCH (28-32) pg RDW (13.2-15.2) % Lymph % (Auto) (13.4-35.0) % Lymph # (Auto) (1.2-5.4) K/mm3 Seg Neutrophils % (40.0-70.0) % PT (12.2-14.9) Sec. INR (0.87-1.13) Sodium (137-145) mmol/L Chloride (98-107) mmol/L Creatinine (0.8-1.3) mg/dL Glucose (75-100) mg/dL POC Glucose 304 H (70-105) mg/dL AST (5-40) units/L Total Creatine Kinase 1791 H 2175 H (55-170) units/L CK-MB (CK-2) 219.8 H 235.3 H (0.0-4.0) ng/mL CK-MB (CK-2) Rel Index 12.2 H 10.8 H (0-4) Troponin T 5.080 H* D (0.00-0.029) ng/mL Albumin (3.9-5) g/dL LDL Cholesterol Direct (50-130) mg/dL 02/18/21 02/18/21 Range/Units 04:37 11:20 MCV (84-94) fl MCH (28-32) pg RDW (13.2-15.2) % Lymph % (Auto) (13.4-35.0) % Lymph # (Auto) (1.2-5.4) K/mm3 Seg Neutrophils % (40.0-70.0) % PT (12.2-14.9) Sec. INR (0.87-1.13) Sodium (137-145) mmol/L Chloride (98-107) mmol/L Creatinine 0.6 L (0.8-1.3) mg/dL Glucose 245 H (75-100) mg/dL POC Glucose 333 H (70-105) mg/dL AST 149 H (5-40) units/L Total Creatine Kinase (55-170) units/L CK-MB (CK-2) (0.0-4.0) ng/mL CK-MB (CK-2) Rel Index (0-4) Troponin T 3.310 H* D (0.00-0.029) ng/mL Albumin 3.5 L (3.9-5) g/dL LDL Cholesterol Direct (50-130) mg/dL HEART Score - HEART Score EKG: Significant ST-depression Age: < 45 Risk factors: 1-2 risk factors Troponin: Troponin T 3.310 ng/mL (0.00-0.029) H* D 02/18/21 04:37 Troponin: 1-3x normal limit - Critical Actions Critical Actions: 4-6 pts:12-16.6% risk of adverse cardiac event. Should be admitted
--- NOTE | 2021-02-18 17:16 | Consultation ---
History of Present Illness Consult date: 02/18/21 Requesting physician: LAYLA SUNG Consult reason: other (STEMI) History of present illness: 40y/o male with a pmhx of DM who was brought to hospital via EMS as a STEMI. Per documentation patient had sharp left sided chest pain with diaphoresis. EMS reported normal blood pressures. Code STMEI was activated at in the ED and patient was taken to the Sample Hand for a PCI [facility] 02/17/2021 -Successful thrombectomy and PCI with 2 HILARIO in RCA. EF 55 to 60% Past History Past Medical History: No medical history, diabetes Past Surgical History: No surgical history Social history: no significant social history Family history: no significant family history Medications and Allergies Allergies Allergy/AdvReac Type Severity Reaction Status Date / Time No Known Allergies Allergy Verified 02/17/21 19:46 Home Medications Medication Instructions Recorded Confirmed Last Taken Type No Known Home Medications [No 02/18/21 02/18/21 Unknown History Reported Home Medications] Active Meds: Active Medications Aspirin (Aspirin Ec 325 Mg Tab) 325 mg PO QDAY [facility] Last Admin: 02/18/21 11:24 Dose: 325 mg Documented by: Clopidogrel Bisulfate (Clopidogrel 75 Mg Tab) 75 mg PO QDAY [facility] Last Admin: 02/18/21 11:23 Dose: 75 mg Documented by: Famotidine (Famotidine 20 Mg Tab) 20 mg PO DAILY [facility] Last Admin: 02/18/21 13:59 Dose: 20 mg Documented by: Hydromorphone HCl (Hydromorphone 1 Mg/1 Ml Inj) 0.5 mg IV Q3H PRN PRN Reason: Pain , Severe (7-10) Insulin Human Regular (Insulin Regular, Human 100 Units/1 Ml) 0 units SUB-Q [facility]; Protocol Last Admin: 02/18/21 16:20 Dose: 2 units Documented by: Metoclopramide HCl (Metoclopramide 10 Mg/2 Ml Inj) 10 mg IV Q6H PRN PRN Reason: Nausea And Vomiting Morphine Sulfate (Morphine 2 Mg/1 Ml Inj) 2 mg IV Q4H PRN PRN Reason: Pain, Moderate (4-6) Naloxone HCl (Naloxone 0.4 Mg/1 Ml Inj) 0.1 mg IV Q2MIN PRN PRN Reason: Res Rate </= 8 or 02 SAT < 92% Ondansetron HCl (Ondansetron 4 Mg/2 Ml Inj) 4 mg IV Q3H PRN PRN Reason: Nausea And Vomiting Review of Systems All systems: negative Constitutional: sweats, no weight loss, no weight gain, no fever Ears, nose, mouth and throat: no ear pain, no ear discharge, no tinnitis, no decreased hearing, no nose pain Cardiovascular: chest pain, no orthopnea, no palpitations Respiratory: no cough, no cough with sputum, no excessive sputum, no shortness of breath, no dyspnea on exertion Gastrointestinal: no nausea, no vomiting, no diarrhea Musculoskeletal: no neck stiffness, no neck pain, no shooting arm pain, no arm numbness/tingling Integumentary: no rash, no pruritis, no redness Neurological: no head injury, no transient paralysis, no paralysis Psychiatric: no anxiety, no memory loss Endocrine: no cold intolerance, no heat intolerance Hematologic/Lymphatic: no easy bruising, no easy bleeding Physical Examination Last Vital Signs Temp 98.3 F 02/18/21 16:00 Pulse 76 02/18/21 10:00 Resp 20 02/18/21 14:52 BP 128/84 02/18/21 06:10 Pulse Ox 97 02/18/21 14:52 General appearance: no acute distress HEENT: Positive: PERRL Neck: Positive: trachea midline Cardiac: Positive: Reg Rate and Rhythm Lungs: Positive: clear to auscultation, Normal Breath Sounds Neuro: Positive: Grossly Intact Abdomen: Positive: Soft, Active Bowel Sounds Skin: Negative: Rash, Suspicious Lesions, Ulceration Extremities: Present: upper extr. pulses, lower extr. pulses. Absent: edema Results 02/17/21 20:37 02/18/21 04:37 Cardiac Enzymes 02/17/21 02/17/21 02/18/21 Range/Units 21:02 23:13 04:37 AST (5-40) units/L CK-MB (CK-2) 41.8 H 219.8 H 235.3 H (0.0-4.0) ng/mL 02/18/21 Range/Units 04:37 AST 149 H (5-40) units/L CK-MB (CK-2) (0.0-4.0) ng/mL Coagulation 02/17/21 02/17/21 Range/Units 20:37 21:02 PT TNR 15.5 H INR TNR 1.18 H APTT TNR Lipids 02/17/21 Range/Units 21:02 Triglycerides 44 (2-149) mg/dL Cholesterol 186 (50-199) mg/dL HDL Cholesterol 47 (40-59) mg/dL Cholesterol/HDL Ratio 3.95 % CBC 02/17/21 Range/Units 20:37 WBC 8.2 (4.5-11.0) K/mm3 RBC 4.57 (3.65-5.03) M/mm3 Hgb 12.5 (11.8-15.2) gm/dl Hct 37.5 (35.5-45.6) % Plt Count 240 (140-440) K/mm3 Lymph # (Auto) 1.1 L (1.2-5.4) K/mm3 [place] # (Auto) 0.3 (0.0-0.8) K/mm3 Eos # (Auto) 0.0 (0.0-0.4) K/mm3 Baso # (Auto) 0.0 (0.0-0.1) K/mm3 Comprehensive Metabolic Panel 02/17/21 02/18/21 Range/Units 21:02 04:37 Sodium 135 L 138 (137-145) mmol/L Potassium 4.3 3.8 (3.6-5.0) mmol/L Chloride 97.4 L 99.6 (98-107) mmol/L Carbon Dioxide 27 26 (22-30) mmol/L BUN 9 10 (9-20) mg/dL Creatinine 0.7 L 0.6 L (0.8-1.3) mg/dL Glucose 346 H 245 H (75-100) mg/dL Calcium 9.1 8.6 (8.4-10.2) mg/dL AST 149 H (5-40) units/L ALT 31 (7-56) units/L Alkaline Phosphatase 86 (35-129) units/L Total Protein 6.5 (6.3-8.2) g/dL Albumin 3.5 L (3.9-5) g/dL - Imaging and Cardiology Echo: pending Cardiac cath: report reviewed EKG: report reviewed, image reviewed EKG interpretations - Telemetry EKG Rhythm: Sinus Rhythm - EKG Sinus rhythms and dysrhythmias: sinus rhythm Assessment and Plan STEMI * [facility] 02/17/2021- Successful thrombectomy and PCI with 2 HILARIO in RCA. EF 55 to 60% * Chest pain currently resolved * Continue DAPT with asa and clopidigrel * Discontinued IV fluids * Echo pending DM * Manage per primary team DVT porphylaxis * Manage by primary team Patient seen conjunction with Dr. Meli Slater who agrees with this plan of care. Will continue to follow - Patient Problems (1) DVT prophylaxis Current Visit: Yes Status: Acute (2) STEMI (ST elevation myocardial infarction) Current Visit: Yes Status: Acute Qualifiers: Involved coronary artery: right coronary artery Qualified Code(s): I21.11 - ST elevation (STEMI) myocardial infarction involving right coronary artery (3) Hyperlipidemia Current Visit: Yes Status: Chronic Qualifiers: Hyperlipidemia type: mixed hyperlipidemia Qualified Code(s): E78.2 - Mixed hyperlipidemia (4) Insulin dependent diabetes mellitus Current Visit: Yes Status: Chronic
--- NOTE | 2021-02-18 18:09 | Electrocardiograph Report ---
[facility] Test Date: 2021-02-17 Test Time: 19:46:46 Pat Name: ANA BARRIGA Department: Room: A257 1 Gender: M Electrocardiogram Technician: [id number] : 1980 Requested By: LAYLA SUNG Order Number: [id number] Reading MD: Joseph Valentine Measurements Intervals [place] Rate: 101 P: 77 IA: 128 QRS: 236 QRSD: 104 T: 100 QT: 343 QTc: 444 Interpretive Statements Sinus tachycardia Inferior infarct, acute STEMI No previous ECG available for comparison Electronically Signed On 02-18-2021 18:08:55 EDT by Joseph Valentine
--- NOTE | 2021-02-18 18:13 | Electrocardiograph Report ---
[facility] Test Date: 2021-02-18 Test Time: 08:25:47 Pat Name: ANA BARRIGA Department: Room: A257 1 Gender: M Coagulating Operator: STUART : 1980 Requested By: LALO BRIAN Order Number: [id number] Reading MD: Joseph Valentine Measurements Intervals [place] Rate: 58 P: 75 MS: 122 QRS: -69 QRSD: 128 T: -80 QT: 502 QTc: 495 Interpretive Statements Sinus bradycardia Inferior infarct, recent Nonspecific T abnormalities, lateral leads Compared to ECG 02/17/2021 19:46:46 QS complexes on current ECG consistent with acute ID in evolution Electronically Signed On 02-18-2021 18:12:34 EDT by Joseph Valentine
--- NOTE | 2021-02-18 23:58 | Consultation ---
DATE OF CONSULTATION: 02/18/2021 PULMONARY CRITICAL CARE CONSULT NOTE This case was also discussed with Emergency Room physician yesterday. CONSULTING PHYSICIAN: Dr. Patrick Snowden. REASON FOR CONSULTATION: ST elevation PR. CHIEF COMPLAINT AND HISTORY OF PRESENT ILLNESS: As follows: The patient is a 40-year-old male with past medical history according to him significant for a diagnosis of diabetes, who was brought in to the Emergency Room as a code STEMI. He mentions that he had really left-sided chest pain, but really to him more so it involved his upper neck and his abdomen. He felt like he had gas and he was doing a lot of belching, which relieved his symptoms for a little bit; however, the pain increased in intensity. He denied element of dyspnea on exertion with it and it was the intensity of the pain in his abdomen mostly that made him come in to the Emergency Room. In the Emergency Room actually prior to that an EKG had revealed an inferior wall ST elevation PR. He was given Zofran for episodes of nausea and vomiting that he said he had also been having. A code STEMI was called. He was emergently taken into the track repair laborer and reportedly received a couple of stents, presumably to the RCA. Postop, he is doing better. When I stopped by to see him today, he was resting in bed. He denied any chest pain. He admits to really about almost [id number]-acms tobacco smoking history, continues to smoke. He denies any nausea, vomiting today. He denies any gross or streaky hemoptysis. He denies any new-onset leg pain or swelling, either unilaterally or bilaterally or any suggestion of venous thromboembolic disorder/DVT, also denies any recent long distance travel. He denies any known exposures to patients with COVID-19 infection. The above is much of the history of presentation as I have. PAST MEDICAL HISTORY: Again, significant for diabetes. PAST SURGICAL HISTORY: Denies. MEDICATIONS: He was on at the time I stopped by to see him were reviewed. Pertinent medications include the following: Aspirin 325 mg p.o. daily, Plavix 75 mg p.o. daily, Pepcid 20 mg p.o. daily, Dilaudid 0.5 mg IV q.3 hours p.r.n. severe pain, insulin via sliding scale, Reglan 10 mg IV q.6 hours p.r.n. nausea and vomiting, morphine sulfate 2 mg IV q.4 hours p.r.n. moderate pain and Zofran 4 mg IV q.3 hours p.r.n. nausea and vomiting. ALLERGIES: No known drug allergies. DIET: Thin gentleman. Denies acute weight loss or gain in the preceding few weeks to months. FAMILY AND SOCIAL HISTORY: Lives in the community. There is a family history of diabetes. He has about a [id number] tobacco smoking history. Denies alcohol or illicit drug use or abuse. REVIEW OF SYSTEMS: No loss of consciousness. No new-onset seizures. No new-onset focal weakness. Denies gross hematochezia or melena. Denies gross hematuria or dysuria. No hematemesis, no hemoptysis. He had the nausea and vomiting. Complete 13 system review of systems obtained. Pertinent positives and/or negatives as in body of history above, otherwise they are noncontributory. PHYSICAL EXAMINATION: VITAL SIGNS: At presentation in the Emergency Room, he was afebrile, temperature 98.0 degrees Fahrenheit, pulse of 98, respiratory rate of 16, blood pressure 129/99, O2 sats were 98%, inspired oxygen concentration at the time was not recorded. When I saw him, O2 sats were 98% on room air. GENERAL: He is a well-built young male. Normocephalic, atraumatic, talking to me in full sentences without significantly increased respiratory effort. HEAD, EYES, EARS, NOSE AND THROAT: Anicteric. No conjunctival erythema. Oropharynx was moist. NECK: No gross jugular venous distention, no thyromegaly. Grossly, there were no palpable lymph nodes in the supraclavicular or submandibular lymph node chains. LUNGS: Auscultation of both lung sweeney was unremarkable. Good bilateral air movement and clear lung sweeney. HEART: Heart sounds 1 and 2 are heard at the time of my evaluation, regular rate and rhythm without overt rubs or murmurs. ABDOMEN: Soft, full, bowel sounds are positive, nontender. No palpable hepatosplenomegaly. EXTREMITIES: Without overt digital clubbing or cyanosis. Pedal pulses are 2+ bilaterally. No pedal edema. NEUROLOGIC: Pupils are equal, round, about 4 mm, reactive to light. Extraocular muscle movements were intact. He moves all 4 extremities spontaneously. SKIN: Normal turgor without overt cellulitis or rash. Please see the wound care nurses' notes for full description of his skin. PSYCHIATRIC: Mood was normal. Affect was appropriate. He had intact judgment and insight. LABORATORY DATA: From my review is as follows: White cell count 8200, hemoglobin 12.5, hematocrit 37.5, platelet count 240. No manual differential. INR was 1.18 at presentation. Serum sodium was 135, potassium 4.3, chloride 97, bicarbonate 27. BUN was 9, creatinine was 0.7. Glucose was 346. CPK 1791. Troponin was 5.08, down to 3.31. LDL cholesterol was 143. No microbiology studies. Chest x-ray is normal. ASSESSMENT: 1. Atypical chest pain secondary to ST elevation myocardial infarction. 2. ST elevation myocardial infarction 3. Diabetes. 4. Tobacco use disorder. 5. Nausea and vomiting at presentation. PLAN: He is status post [employer]. We will continue antiplatelet therapy as recommended by the educational sign language interpreter. He is continuing on Plavix and aspirin for now. I have strongly taken the time to go over tobacco abstinence with him, explained his age, his comorbidities, his diabetes and explained to him that this is must do. He agrees to consider/stop smoking with all seriousness and I do hope that he will follow up, but I did spend the time to discuss this with him. Otherwise, he will be started on GI prophylaxis. DVT prophylaxis is ongoing with SCDs. I will defer to Cardiology for further management. Glycemic control will be for target blood glucose less than 180 mg/dL. Flu and pneumonia vaccination will be addressed per protocol. He is doing much better and will be transferred out of the intensive care unit. Thank you very much for the consult. We will follow along and make further recommendations as picture progresses/becomes clearer. TID: [id number] RECEIPT: [id number] BURAK/LEONARDO
[2021-02-19] MEDS: INSULIN REGULAR, HUMAN 100 UNITS/1 ML SUB-Q SCH (08:19)
[2021-02-19] MEDS: ASPIRIN EC 325 MG TAB PO SCH (09:15)
[2021-02-19] MEDS: CLOPIDOGREL 75 MG TAB PO SCH (09:15)
[2021-02-19] MEDS: FAMOTIDINE 20 MG TAB PO SCH (09:15)
[2021-02-19 12:08] VITALS: BP 119/80
--- NOTE | 2021-02-19 13:19 | Consultation ---
DATE OF CONSULTATION: 02/18/2021 CARDIOLOGY CONSULTATION REFERRING PHYSICIAN: Dr. Snowden in the Emergency Room. REASON FOR CONSULTATION: Advice and opinion regarding STEMI. HISTORY OF PRESENT ILLNESS: The patient is a 40-year-old -Japanese gentleman with a history of diabetes, who complained of left-sided chest pain. The chest pain was approximately 2 hours long prior to arrival to the Emergency Room. The patient was brought to the emergency room by EMS. A code STEMI was called. He is having 10/10 crushing chest pain, no shortness of breath. Mild diaphoresis. No headache. No recent bleeding, diathesis. No nausea or vomiting. No fevers, chills, headache, no leg pain, rash, urine or stool changes. No recent travel. EKG reveals inferior ST elevation with lateral reciprocal changes. The patient was loaded with heparin, Plavix and aspirin. ALLERGIES: No known drug, food, or environmental allergies. MEDICATIONS: No known medications. REVIEW OF SYSTEMS: As per HPI. PHYSICAL EXAMINATION: VITAL SIGNS: Blood pressure was 120/90, afebrile. Tele reveals sinus rhythm in the 90s, O2 sats 98%. GENERAL: This is an uncomfortable, young -Japanese gentleman in some apparent distress, alert and oriented x3. HEENT: Sclerae are anicteric. PERRLA. NECK: Supple. No masses. No JVD. CHEST: Clear to auscultation bilaterally. Good air movement. CARDIOVASCULAR: Regular rate and rhythm, S1, S2. ABDOMEN: Soft, nontender, nondistended. Normoactive bowel sounds in all 4 quadrants. No mass or bruits. EXTREMITIES: No cyanosis, clubbing, edema. Good peripheral pulses. SKIN: Intact. No rashes. LABORATORY DATA: EKG is aforementioned. Labs are pending. ASSESSMENT AND PLAN: In summary, the patient is a 40-year-old -Japanese gentleman brought to the Emergency Room with 2 hours of chest pain, found to have inferior ST elevation myocardial infarction with lateral reciprocal changes. STEMI protocol was initiated. The patient ____ aspirin, Plavix, and heparin. Further plans contingent on cath results. TID: [id number] RECEIPT: [id number] GERARDO/ARIEL/RED
--- NOTE | 2021-02-19 13:25 | Progress Note ---
<LAYLA VIERA - Last Filed: 02/19/21 15:17> Assessment and Plan STEMI * [facility] 02/17/2021- Successful thrombectomy and PCI with 2 HILARIO in RCA. EF 55 to 60% * Chest pain currently resolved * Continue DAPT with asa and clopidigrel * Discontinued IV fluids * Echo 02/17/2021- EF 40 to 45%, moderate hypokinesis in the inferior wall of left ventricle, mild diastolic dysfunction, right ventricular systolic function is normal left and right atrium normal size no pericardial effusion COVID-19 * Patient has tested positive for COVID-19 * Management per primary team DM * Manage per primary team DVT prophylaxis * Manage by primary team Patient seen conjunction with Dr. Meli Slater who agrees with this plan of care. Will continue to follow 30min of critical care time spent in coordination and care of this patient - Patient Problems (1) DVT prophylaxis Status: Acute (2) STEMI (ST elevation myocardial infarction) Status: Acute Qualifiers: Involved coronary artery: right coronary artery Qualified Code(s): I21.11 - ST elevation (STEMI) myocardial infarction involving right coronary artery (3) Hyperlipidemia Status: Chronic Qualifiers: Hyperlipidemia type: mixed hyperlipidemia Qualified Code(s): E78.2 - Mixed hyperlipidemia (4) Insulin dependent diabetes mellitus Status: Chronic Subjective Date of service: 02/19/21 Principal diagnosis: STEMI Interval history: Patient in bed no cardiac complaints Sinus 70s with PVCs on monitor Objective Last Vital Signs Temp 99 F 02/19/21 08:00 Pulse 84 02/19/21 10:00 Resp 15 02/19/21 10:00 BP 119/80 02/19/21 10:00 Pulse Ox 100 02/19/21 10:00 - Physical Examination General: No Apparent Distress HEENT: Positive: PERRL Neck: Positive: trachea midline Cardiac: Positive: Reg Rate and Rhythm Lungs: Positive: clear to auscultation, Normal Breath Sounds Neuro: Positive: Grossly Intact Abdomen: Positive: Soft, Active Bowel Sounds Skin: Negative: Rash, Suspicious Lesions, Ulceration Extremities: Present: upper extr. pulses, lower extr. pulses. Absent: edema - Imaging and Cardiology EKG: report reviewed, image reviewed Echo: report reviewed Cardiac cath: report reviewed - Telemetry EKG Rhythm: Sinus Rhythm - EKG Sinus rhythms and dysrhythmias: sinus rhythm <LALO SLATER - Last Filed: 02/20/21 10:03> Assessment and Plan I spent a long time discussing the importance of compliance with medications, specifically dual antiplatelet therapy. Patient did express understanding; however, patient was somewhat belligerent. He is entirely alert and oriented and of sound mind. Wants to leave the hospital despite having a recent large myocardial infarction. Echo results were also reviewed with him at length. He is argumentative and confrontational with nursing staff as well. Patient is not ready for discharge. He understands that if he is not compliant with medications he is at high risk for acute stent thrombosis and sudden cardiac . Expresses understanding. Today he is doing well clinically. Denies any chest pain. I am concerned that he will not be compliant with medications and thus I spent a long time talking to him about this.
--- NOTE | 2021-02-19 16:04 | Event Note ---
Date: 02/19/21 signed out AMA
== END 2021-02-19 11:25 | disposition left against medical advice (07) | DRG 246 ==
LOC: ED 19:41 → CC1 22:09 → OBSVTOIN 02-18 10:00
PROVIDERS: ADMIT Internal Medicine; ATTEND Internal Medicine
PROC: 4A023N7 Measurement of Cardiac Sampling and Pressure, Left Heart, Percutaneous Approach (ICD-10-PCS; principal; 2021-02-18)
PROC: 027035Z Dilation of Coronary Artery, One Artery with Two Drug-eluting Intraluminal Devices, Percutaneous Approach (ICD-10-PCS; 2021-02-18)
PROC: 02C03ZZ Extirpation of Matter from Coronary Artery, One Artery, Percutaneous Approach (ICD-10-PCS; 2021-02-18)
PROC: B2111ZZ Fluoroscopy of Multiple Coronary Arteries using Low Osmolar Contrast (ICD-10-PCS; 2021-02-18)
PROC: B2151ZZ Fluoroscopy of Left Heart using Low Osmolar Contrast (ICD-10-PCS; 2021-02-18)
PROC: 6A750Z5 Ultrasound Therapy of Heart, Single (ICD-10-PCS; 2021-02-18)
DX: I21.11 ST elevation (STEMI) myocardial infarction involving right coronary artery (principal); U07.1 COVID-19; E78.2 Mixed hyperlipidemia; E11.9 Type 2 diabetes mellitus without complications; Z79.4 Long term (current) use of insulin; Z79.899 Other long term (current) drug therapy; Z79.891 Long term (current) use of opiate analgesic; Z79.01 Long term (current) use of anticoagulants
CPT/HCPCS: 36415; 71045; 80048; 80053; 80061; 82550; 82553; 82962; 84484; 85025; 85610; 86850; 86900; 86901; 92941; 92978; 93005; 93306; 93458; 99291; 99406; G0378; C1725; C1753; C1757; C1769; C1874; C1887; C1894; C9606; J0171; J0461; J1265; J1644; J1815; J2001; J2250; J2270; J2370; J3010; J3246; J7030; Q9967; U0003